=== PATIENT | male | born 2000 | race Caucasian/White ===

== ENCOUNTER 2022-09-29 19:43 | Inpatient (IN) | payer BC ==
[2022-09-29] MEDS ORDERED: Ondansetron 4 MG/2 ML SDV IVPUSH PRN (21:27)
[2022-09-29] MEDS ORDERED: Ketorolac 30 MG/ML SDV IVPUSH PRN (21:28)
[2022-09-29] MEDS: Acetaminophen 325 MG Tab PO PRN (21:51)
[2022-09-29] MEDS ORDERED: Levofloxacin/Dextrose 5%-Water 500 MG in Premix Bag 1 BAG IV SCH (22:00)
[2022-09-29] MEDS: Sodium Chloride 0.9% 1,000 ML IV SCH (22:07)
[2022-09-29] MEDS: metroNIDAZOLE/Normal Saline 500 MG in Premix Bag 1 BAG IV SCH (22:14)
[2022-09-30] MEDS: HYDROmorphone 0.5 MG/0.5 ML Syringe IVPUSH PRN ×2 (01:35→07:23)
[2022-09-30] MEDS: fentaNYL 100 MCG/2 ML SDV IVPUSH PRN ×3 (02:06→05:30)
[2022-09-30] MEDS: Acetaminophen 325 MG Tab PO PRN ×2 (02:13→07:22)
[2022-09-30 05:24] LABS: BASOPHILS ABSOLUTE AUTO 0.02 K/mm3 (0.01-0.08); BASOPHILS PERCENT AUTO 0.2 % (0.1-1.2); EOSINOPHILS ABSOLUTE AUTO 0.02 K/mm3 (0.04-0.54); EOSINOPHILS PERCENT AUTO 0.2 (0.8-7.0); HEMOGLOBIN 15.4 gm/dl (13.7-17.5); IMMATURE GRAN ABSOLUTE AUTO 0.01 K/mm3 (0.00-0.10); IMMATURE GRAN PERCENT AUTO 0.1 % (<=1.0); LYMPHOCYTES ABSOLUTE AUTO 1.35 K/mm3 (1.32-3.57); LYMPHOCYTES PERCENT AUTO 16.1 % (21.8-53.1); MEAN CORPUSCULAR HEMOGLOBIN 30.2 pg (25.7-32.2); MEAN CORPUSCULAR HGB CONC 34.2 g/dl (32.2-35.5); MEAN CORPUSCULAR VOLUME 88.2 fl (79.0-92.2); MEAN PLATELET VOLUME 11.3 fl (9.4-12.3); MONOCYTES ABSOLUTE AUTO 1.26 K/mm3 (0.30-0.82); MONOCYTES PERCENT AUTO 15.1 % (5.3-12.2); NEUTROPHILS PERCENT AUTO 68.3 % (34.0-67.9); PLATELET COUNT,PLT 210 K/mm3 (163-337); WHITE BLOOD CELL COUNT,WBC 8.36 K/mm3 (4.23-9.07)
[2022-09-30 05:38] LABS: ANION GAP 10.6 (5-15); BUN/CREATININE RATIO 9.1 (14-18); CALCIUM 9.1 mg/dL (8.5-10.1); CREATININE 1.1 mg/dL (0.7-1.3); EST CRCL DRUG DOSING (CG) 102.66 mL/min; POTASSIUM,K 3.6 mEq/L (3.5-5.1)
[2022-09-30] MEDS: metroNIDAZOLE/Normal Saline 500 MG in Premix Bag 1 BAG IV SCH (08:51)
[2022-09-30] MEDS: Sodium Chloride 0.9% 1,000 ML IV SCH (08:51)
[2022-09-30] MEDS ORDERED: Acetaminophen/HYDROcodone 325-10 MG Tab PO PRN (09:53)
[2022-09-30] MEDS ORDERED: Acetaminophen/HYDROcodone 325-5 MG Tab PO PRN (11:21)
== END 2022-09-30 12:25 | disposition home or self-care (01) | DRG 249 ==
LOC: JD.ED 19:43 → JD.MS 20:21
PROVIDERS: ADMIT Internal Medicine; ATTEND Internal Medicine
DX: K52.9 Noninfective gastroenteritis and colitis, unspecified (principal); F90.9 Attention-deficit hyperactivity disorder, unspecified type; Z87.891 Personal history of nicotine dependence
CPT/HCPCS: 36415; 80048; 83630; 85025; 87045; 87046; 87493; 87899; 99283; 99284; A9270-GY; J1170; J1885; J1956; J3010; J3490; J7030

== ENCOUNTER 2022-10-01 01:58 | Emergency (ER) | payer BC ==
[2022-10-01] MEDS ORDERED: Ketorolac 30 MG/ML SDV IVPUSH ONE (02:19)
[2022-10-01] MEDS ORDERED: Ondansetron 4 MG/2 ML SDV IVPUSH ONE (02:19)
[2022-10-01] MEDS ORDERED: Sodium Chloride 0.9% 1,000 ML IV ONE (02:19)
[2022-10-01 02:32] LABS: BASOPHILS ABSOLUTE AUTO 0.02 K/mm3 (0.01-0.08); BASOPHILS PERCENT AUTO 0.2 % (0.1-1.2); EOSINOPHILS ABSOLUTE AUTO 0.05 K/mm3 (0.04-0.54); EOSINOPHILS PERCENT AUTO 0.5 (0.8-7.0); HEMATOCRIT 42.4 % (40.1-51.0); HEMOGLOBIN 14.9 gm/dl (13.7-17.5); IMMATURE GRAN ABSOLUTE AUTO 0.02 K/mm3 (0.00-0.10); IMMATURE GRAN PERCENT AUTO 0.2 % (<=1.0); LYMPHOCYTES ABSOLUTE AUTO 1.18 K/mm3 (1.32-3.57); LYMPHOCYTES PERCENT AUTO 12.9 % (21.8-53.1); MEAN CORPUSCULAR HEMOGLOBIN 30.5 pg (25.7-32.2); MEAN CORPUSCULAR HGB CONC 35.1 g/dl (32.2-35.5); MEAN CORPUSCULAR VOLUME 86.7 fl (79.0-92.2); MEAN PLATELET VOLUME 10.6 fl (9.4-12.3); MONOCYTES ABSOLUTE AUTO 1.44 K/mm3 (0.30-0.82); MONOCYTES PERCENT AUTO 15.7 % (5.3-12.2); NEUTROPHILS ABSOLUTE AUTO 6.47 K/mm3 (1.78-5.38); NEUTROPHILS PERCENT AUTO 70.5 % (34.0-67.9); PLATELET COUNT,PLT 235 K/mm3 (163-337); RED BLOOD CELL COUNT 4.89 M/mm3 (4.63-6.08); WHITE BLOOD CELL COUNT,WBC 9.18 K/mm3 (4.23-9.07)
[2022-10-01 02:54] LABS: A/G RATIO 1.1 (1-2); ALBUMIN 3.4 g/dl (3.4-5.0); ANION GAP 12.2 (5-15); BILIRUBIN TOTAL 1.2 mg/dL (0.2-1.0); BUN/CREATININE RATIO 7.3 (14-18); CALCIUM 8.9 mg/dL (8.5-10.1); CREATININE 1.1 mg/dL (0.7-1.3); EST CRCL DRUG DOSING (CG) 105.83 mL/min; POTASSIUM,K 3.2 mEq/L (3.5-5.1); PROTEIN TOTAL,TP 6.6 g/dl (6.4-8.2)
== END 2022-10-01 03:45 | disposition home or self-care (01) ==
LOC: JD.ED 01:58
DX: K52.9 Noninfective gastroenteritis and colitis, unspecified (principal)
CPT/HCPCS: 36415; 80053; 85025; 96374; 96375; 99284; J1885; J2405; J7030; 99283